=== PATIENT | female | born 1940 | race Caucasian/White ===

== ENCOUNTER 2017-11-30 15:21 | Emergency (ER) | payer BC ==
[~2017-11-30] VITALS: Ht 152.4 cm; Wt 63.6 kg
[~2017-11-30 15:21] MED LIST: ANTIVERT 25MG25 MG PO; CRESTOR40 MG PO; GINKO BILOBA60 MG PO; GLUCOSAMINE & C1 CAP PO; LORTAB 5/500 501 TAB PO; MICRO-K 1010 MEQ PO; MULTIPLE VITAMI1 CAP PO; NEXIUM40 MG PO; SKELAXIN400 MG PO; STOOL SOFTENER100 M1 PO; TYLENOL EXTRA500 M1 PO; VESICARE5 MG PO; VITAMIN E1000 U/CAP PO; ZETIA10 MG PO; ZOFRAN4 MG PO
[2017-11-30 15:24] VITALS: BP 196/81; TEMP 99.1
[2017-11-30 20:08] VITALS: PULSE 100
== END 2017-11-30 20:05 | disposition home or self-care (01) ==
LOC: COL.ER 15:21
DX: S42.212A Unspecified displaced fracture of surgical neck of left humerus, initial encounter for closed fracture (principal); E78.5 Hyperlipidemia, unspecified; K21.9 Gastro-esophageal reflux disease without esophagitis; Z86.73 Personal history of transient ischemic attack (TIA), and cerebral infarction without residual deficits

== ENCOUNTER → 2018-10-04 | Outpatient (CLI) | payer BC | LOC: COL.RAD 12:29 | DX: M43.16 Spondylolisthesis, lumbar region (principal); M51.36 Other intervertebral disc degeneration, lumbar region; M48.061 Spinal stenosis, lumbar region without neurogenic claudication; M43.9 Deforming dorsopathy, unspecified ==

== ENCOUNTER 2018-12-23 17:27 | Observation (INO) | payer BC, OTHER ==
[~2018-12-23] VITALS: Ht 149.9 cm; Wt 60.2 kg
[~2018-12-23 17:27] MED LIST changes: +ARICEPT 5MG PO; +CALCIUM 600MG+D1 TAB PO; +NAPROSYN 2250 MG/TAB PO; -STOOL SOFTENER100 M1 PO; +STOOL SOFTENER100 M2 PO; +VITAMIN E 400 U4001 PO; +ZANTAC 150150 MG PO
[2018-12-23 18:37] LABS: BASO # 0.1 (0.0-0.2); BASO % 0.6 % (0.0-2.0); EOS % 0.1 % (0-4.0); GRAN # 7.1 (1.4-6.5); GRAN % 77.8 % (42.2-75.2); HEMATOCRIT 42.9 % (37.0-47.0); LYMPH # 1.1 (1.2-3.4); LYMPH % 12.3 % (20.0-51.0); MEAN CELL VOLUME 89 fl (80.0-100.0); MEAN CORPUSCULAR HEMOGLOBIN 31 pg (27.0-31.0); MEAN CORPUSCULAR HGB CONC 35 g/dl (33.0-37.0); MONO # 0.8 (0.1-0.6); PLATELET COUNT 283 K/mm3 (130-400); REDCELL DISTRIBUTION WIDTH-CV 12.2 % (11.5-14.5)
[2018-12-23 18:53] LABS: ALANINE AMINOTRANSFERASE 22 U/L (9-52); ALBUMIN 4.5 gm/dL (3.5-5.0); ALKALINE PHOSPHATASE 81 U/L (50-136); ANION GAP 10 mmol/L (7-16); AST,SGOT 44 U/L (15-37); BILIRUBIN,TOTAL 0.8 mg/dL (0.0-1.0); BLOOD UREA NITROGEN 13 mg/dL (7-17); CALCIUM 11.4 mg/dL (8.4-10.2); CARBON DIOXIDE 26 mmol/L (22-30); CHLORIDE 103 mmol/L (98-107); CREATININE, serum 0.73 (0.52-1.25); GLUCOSE 114 mg/dL (74-106); POTASSIUM 3.8 mmol/L (3.4-5.0); SODIUM 139 mmol/L (137-145); TOTAL PROTEIN 7.8 gm/dL (6.4-8.2)
[2018-12-23 18:57] VITALS: BP 171/78; PULSE 91
[2018-12-23 19:08] LABS: TROPONIN-I < 0.012 ng/mL (0.000-0.035)
[2018-12-23 19:48] LABS: COLLECTION METHOD CLEAN CATCH
[2018-12-23 19:53] LABS: PH 7 (5-8); SQUAMOUS EPITHELIAL None Seen /hpf; URINE APPEARANCE Clear; URINE BACTERIA None Seen /hpf; URINE BILIRUBIN Negative (NEGATIVE); URINE BLOOD 1+ (NEGATIVE); URINE COLOR Yellow; URINE GLUCOSE Negative (NEGATIVE); URINE KETONE Negative (NEGATIVE); URINE LEUKOCYTE ESTERASE Negative (NEGATIVE); URINE NITRATE Negative (NEGATIVE); URINE PROTEIN(semi-quant) Negative (NEGATIVE); URINE UROBILINOGEN Negative (NEGATIVE); URINE WBC 0-2 /hpf
[2018-12-23] MEDS ORDERED: MULTIPLE VITAMI1 CAP PO (21:01)
[2018-12-23] MEDS ORDERED: ANTIVERT 12.512.5 MG PO (21:03)
[2018-12-23] MEDS ORDERED: GLUCOSAMINE SU500 M2 PO (21:05)
[2018-12-23] MEDS ORDERED: TIMOLOL MALEATE5 M1 OP (21:07)
[2018-12-23 22:21] VITALS: BP 131/75; PULSE 84; TEMP 98.1
[2018-12-24] VITALS (7 sets, daily range): BP systolic 141–176; BP diastolic 56–82; PULSE 65–76; TEMP 97.8–98.6
--- NOTE | 2018-12-24 05:02 | NUR ---
Pt up to floor from ED last evening, initial assessments completed, Pt placed in yellow gown, socks, and arm band applied, Pt has not slept through the night. VS have been stable, BP has been running high. Pt is a 1X assist to the restroom. IV site changed to left hand, original site was leaking.
[2018-12-24 08:39] LABS: BASO # 0.1 (0.0-0.2); BASO % 0.8 % (0.0-2.0); EOS # 0.1 (0.0-0.7); EOS % 1.5 % (0-4.0); GRAN # 4.8 (1.4-6.5); GRAN % 66.2 % (42.2-75.2); HEMOGLOBIN 14.2 g/dl (12.5-16.0); LYMPH # 1.6 (1.2-3.4); LYMPH % 21.6 % (20.0-51.0); MEAN CELL VOLUME 90 fl (80.0-100.0); MEAN CORPUSCULAR HEMOGLOBIN 31 pg (27.0-31.0); MEAN CORPUSCULAR HGB CONC 35 g/dl (33.0-37.0); MEAN PLATELET VOLUME 9.7 fl (7.4-10.4); MONO # 0.7 (0.1-0.6); MONO % 9.8 % (1.7-9.3); PLATELET COUNT 244 K/mm3 (130-400); RED BLOOD COUNT 4.57 M/mm3 (4.10-5.30); REDCELL DISTRIBUTION WIDTH-CV 12.5 % (11.5-14.5)
[2018-12-24 08:49] LABS: CALCIUM 9.9 mg/dL (8.4-10.2); CHOLESTEROL RISK RATIO 2.8; CREATININE, serum 0.59 (0.52-1.25); POTASSIUM 3.6 mmol/L (3.4-5.0)
--- NOTE | 2018-12-24 10:00 | NUR ---
Assessment conplete.pt awake,a/ox3.denies pain or discomfort at this time.breathing even and unlabored.LSCTA.denies SOB.reports dizzines as she sat ob toilet otherwise denies any dizziness when walking.IVF infusing.VSS.all meds given. Pt took some of her own meds before this RN walked into her room.This RN took meds and kept it in medication room.explained reason to pt and pt voiced understanding.no other needs voiced at this time.will continue to monitor.call light in reach
--- NOTE | 2018-12-24 12:26 | NUR ---
Plan is to return home with the hopes that she will have placement at [facility]. Assessment: SW met with patient in room who reports that she was working with her PCP Dr. Randall to setup LTC at [facility]. Patient reports that she has not heard anything from [facility] and her concerns are her finances for her stay. Patient reports that she does not have any family close by although EMR shows a nephew at [employer] . Patient shares that she has a walker and a cane. Paqtient reports that the best contact for herself is [phone]. Patient reports that she uses [facility] for RX. Patient denies having a DPOA and declined setting one up right now. plant and equipment worker called [facility] to verify possible acceptance for LTC. SW informed that they were waiting on Dr. Randall to interface with client about needing a Guardian in order to continue in the process. Patient shares that she has not spoke with her PCP since September and is not liking the idea of a guardian. Patient denies the need for home health services and declined setting one up. Patient indicated that she will reach back out to her pcp for additonal guidance but believed she may not be able to afford [facility]. SW made consult to Lena in finance for medicare and medicaid assistance. SW should continue to follow in case additonal needs arise.
--- NOTE | 2018-12-24 17:24 | NUR ---
report given to SATINDER Mao.pt stable.resting in bed at this time.IV fluids discontinued.call light in reach
--- NOTE | 2018-12-24 19:12 | NUR ---
Report given to Maribel RAJAN, pt assisted to bathroom several times to void strong smelling clear yellow urine. Pt is slow and weak but steady to bathroom. denies needs at this time, dinner eaten and call light in reach
[2018-12-25 03:39] VITALS: BP 162/63; PULSE 68; TEMP 98.5
--- NOTE | 2018-12-25 04:26 | NUR ---
PT APPEARED TO HAVE ONLY SLEPT FOR A FEW HOURS THIS NOC. HAS BEEN UP IN AND OUT OF THE BATHROOM SEVERAL TIMES THIS NOC. STATED SHE ONLY HAD ONE DIZZY SPELL WHEN SHE HAS GOTTEN UP BUT WAS ABLE TO STEADY HERSELF.
--- NOTE | 2018-12-25 04:30 | NUR ---
PT APPEARED TO HAVE ONLY SLEPT FOR A FEW HOURS THIS NOC. HAS BEEN UP IN AND OUT OF THE BATHROOM SEVERAL TIMES THIS NOC. STATED SHE ONLY HAD ONE DIZZY SPELL WHEN SHE HAS GOTTEN UP BUT WAS ABLE TO STEADY HERSELF. PT IS IMPULSIVE AND HASNT CALLED FOR ASSISTANCE. BED ALARM ON AND FALL RISK PROTOCOL INITAITED. NO CONSERNS VOICED OVERNIGHT.
--- NOTE | 2018-12-25 07:21 | NUR ---
Pt assisted to bedside commode d/t dizziness upon getting up after sleeping. Pt assist x1 and dizziness subsided after 10min. Pt IV was out and hanging by tape. This nurse cleansed and no bleeding noted. Pt assisted back to bed x1. Pt has call light in reach and denies pain or needs at this time.
[2018-12-25 07:53] VITALS: BP 152/64; PULSE 63; TEMP 97.8
--- NOTE | 2018-12-25 09:43 | NUR ---
Pt refusing to have IV and for lab work to be drawn this am. Pt educated on the importance of lab work and pt still refuses. Hospitalist updated. Pt alert and oriented. Pt high fall risk and precautions in place.
[2018-12-25] MEDS ORDERED: MIRALAX510G PO (10:12)
[2018-12-25] MEDS ORDERED: ANTIVERT 25MG25 MG PO (10:13)
--- NOTE | 2018-12-25 10:20 | NUR ---
LOVE and LOVE jules attended clinical rounding. Dr asked patient mini mental status exam questions and patient answered all questions correctly. Patient would like to return home right now and discuss [facility] later. Patient also reports she recieves meals on wheels friendship meals as well. Dr talked with patient about home health options, she is open to them coming into the home and helping. LOVE jules met with patient who reports she used homecare and hospice in the past and would like to use them again. LOVE jules called and they will take her insurance. Referral made for PT and SN. LOVE called Lena in finance who said Sathish will meet with patient to discuss medicare and medicaid today prior to her discharging. LOVE called susana at [facility] to inform her of MMS exam and that the dr feels patient is competant to make her own decisions. Susana reports she will follow up with Dr Randall about patient. Patient is dc home today with HH PT/SN provided by [facility] hosp[facility].
[2018-12-25 11:59] VITALS: BP 183/67; PULSE 65; TEMP 98.5
[2018-12-25 12:10] VITALS: BP 170/67
--- NOTE | 2018-12-25 12:11 | NUR ---
First visit from the timber trimmer. No needs right now.
--- NOTE | 2018-12-25 13:01 | NUR ---
LOVE called go van go for patient. They will pick patient up at 1:45 at the er exit. Nurse informed.
--- NOTE | 2018-12-25 13:45 | NUR ---
Pt alert and oriented. Pt given discharge instructions and education on medications, diagnosis, and home health orders. Pt going home via taxi service. Aide to escort pt via wheelchair to ER for ride. Pt denies SOB, dizziness, and pain at discharge. Pt reminded to complete position changes slowly. Pt denies further questions.
== END 2018-12-25 13:45 | disposition home health service (06) ==
LOC: COL.ER 17:27 → MEDICAL 20:18
PROVIDERS: Emergency Medicine; Nurse Practitioner Family; ADMIT Internal Medicine
DX: R42 Dizziness and giddiness (principal); W19.XXXA Unspecified fall, initial encounter; Z66 Do not resuscitate; E83.52 Hypercalcemia; K59.00 Constipation, unspecified; E78.5 Hyperlipidemia, unspecified; K21.9 Gastro-esophageal reflux disease without esophagitis; I69.354 Hemiplegia and hemiparesis following cerebral infarction affecting left non-dominant side; Z86.018 Personal history of other benign neoplasm
CPT/HCPCS: G0378; J7030; J7040

== ENCOUNTER 2019-03-08 09:45 | Outpatient (RCR) | payer BC ==
[~2019-03-08 09:45] MED LIST changes: +ANTIVERT 12.512.5 MG PO; +GLUCOSAMINE SU500 M2 PO; +MIRALAX510G PO; +TIMOLOL MALEATE5 M1 OP
== END 2019-05-09 | disposition still patient (30) ==
LOC: MKS.ESL.PT
DX: M79.672 Pain in left foot (principal); M79.671 Pain in right foot

== ENCOUNTER 2021-09-25 10:32 | Emergency (ER) | payer BC ==
[~2021-09-25] VITALS: Ht 149.9 cm; Wt 54.5 kg
[2021-09-25 10:44] VITALS: TEMP 98.8
[2021-09-25 12:05] VITALS: BP 167/91; PULSE 73
== END 2021-09-25 12:35 | disposition home or self-care (01) ==
LOC: COL.ER 10:32
DX: S79.911A Unspecified injury of right hip, initial encounter (principal); S49.91XA Unspecified injury of right shoulder and upper arm, initial encounter; I10 Essential (primary) hypertension; E78.5 Hyperlipidemia, unspecified; Z79.899 Other long term (current) drug therapy; W01.0XXA Fall on same level from slipping, tripping and stumbling without subsequent striking against object, initial encounter; Y93.01 Activity, walking, marching and hiking

== ENCOUNTER → 2022-05-20 | Outpatient (CLI) | payer BC | LOC: COL.RAD 09:45 | DX: M53.3 Sacrococcygeal disorders, not elsewhere classified (principal); M25.48 Effusion, other site ==

== ENCOUNTER → 2022-07-22 | Outpatient (CLI) | payer BC ==
[2022-07-22 16:17] LABS: CALCIUM 10.1 mg/dL (8.4-10.2); CREATININE, serum 0.88 mg/dL (0.57-1.11); POTASSIUM 3.7 mmol/L (3.5-4.5)
== END ==
LOC: ZCOL.LAB 13:39
PROVIDERS: Internal Medicine
DX: I10 Essential (primary) hypertension (principal)

== ENCOUNTER → 2022-07-23 | Outpatient (CLI) | payer BC, MEDICAID | LOC: COL.RAD 09:34 | DX: K62.89 Other specified diseases of anus and rectum (principal) | CPT/HCPCS: Q9967 ==